=== PATIENT | male | born 1950 | race Caucasian/White ===

== ENCOUNTER → 2016-10-28 | Outpatient (CLI) | payer MEDICARE, OTHER ==
[~2016-10-28] MED LIST: ALBUTEROL17 GM INH; ALLERGY RELIEF4 M1 PO; ALPRAZOLAM PO; ASPIRIN81 M1 PO; ATENOLOL PO; AUGMENTIN PO; BACTRIM DS TABL1 TA1 PO; BAYER CHEWABLE81 MG PO; CELEXA PO; CEPHALEXIN500 M1 PO; DILAUDID4 MG PO; FUROSEMIDE40 MG PO; GLIPIZIDE2.5 MG/BOT PO; GLUCOTROL PO; GLUCOTROL XL PO; HYDROCODON-ACE1 EAC5 PO; HYDROCODONE-APA1 T51 PO; HYDROCODONE-APA1 T54 PO; IMDUR-ER30 MG PO; IMDUR30 MG PO; KEFLEX500 MG PO; KLOR-CON PO; LASIX PO; LASIX20 MG PO; LIPITOR20 MG PO; LOPID600 MG PO; LOVASTATIN20 M1 PO; METOPROLOL TAR25 MG PO; NITROGLYGERIN0.4 MG SL; OXYCODONE HCL30 MG PO; OXYCONTIN30 MG PO; OXYGEN; PAIN PUMP; PHENERGAN25 MG PO; PLAVIX PO; SKELAXIN PO; TENORMIN50 MG PO; XANAX1 MG PO
--- NOTE | ~2016-10-28 | CR169 ---
[facility] A Service of [facility] & [facility] RADIOLOGY TEXT RESULTS PATIENT: CHRIS NELSON LOCATION: [facility] : 50 UNIT #: [id number] AGE: [address]: Homero Miranda MD SEX: M ORDER DR: [id number] [facility] [address] [place], [place] [address] [id number] O MR#: [id number] Acc #: [id number] NAME: CHRIS NELSON : 1950 SEX: M STUDY DATE/TIME: 10/28/2016 11:34 UNIT: [facility] ROOM: STUDY DESCRIPTION: CR Knee 2 Views Lt Attending Physician: Homero Miranda M.D. Referring Physician: Homero Miranda M.D. Ordering Physician: Homero Miranda M.D. Primary Care Physician: Bethel Dodson M.D. MEDICAL IMAGING REPORT This report is preliminary unless electronic signature is present EXAM Left knee 2 views 10/28/2016 HISTORY Left knee pain for 2 years, worsening in the last 3 weeks. No known injury. FINDINGS 2 views of the left knee demonstrate no fracture. There is mild narrowing of the medial compartment of the knee with small osteophytes bordering the medial compartment. Small osteophytes are also seen along the posterior aspect of the patella. The bones are normally mineralized. There is no joint effusion. IMPRESSION Degenerative change about the left knee. No acute abnormality. Dictated by... Frank Miramontes M.D. THIS IS AN ELECTRONICALLY VERIFIED REPORT Frank Miramontes M.D. at 10/30/2016 6:17 AM KRT/pcl TD: 10/29/2016 07:54 JOB #: [id number] MEDICAL IMAGING REPORT Page 1 of 1 COPY
== END | disposition home or self-care (01) ==
LOC: CRAD 11:02
DX: M25.562 Pain in left knee (principal)
CPT/HCPCS: 73560